=== PATIENT | female | born 1985 | race Two or more races ===

== ENCOUNTER 2018-07-29 13:30 | Outpatient (CLI) | END 2018-07-29 17:05 | disposition home or self-care (01) ==

== ENCOUNTER 2018-07-30 16:41 | Outpatient (CLI) | END 2018-07-30 20:45 | disposition home or self-care (01) ==

== ENCOUNTER 2018-07-31 16:05 | Outpatient (CLI) | END 2018-07-31 20:25 | disposition home or self-care (01) ==

== ENCOUNTER 2018-08-14 09:25 | Inpatient (IN) | END 2018-08-17 16:05 | disposition home or self-care (01) | DRG 807 ==